=== PATIENT | male | born 1955 | race Two or more races ===

== ENCOUNTER → 2016-11-04 | Outpatient (CLI) | payer OTHER ==
--- NOTE | ~2016-11-04 | US77 ---
[facility] A Service of [facility] RADIOLOGY TEXT RESULTS PATIENT: CHICO UMAÑA LOCATION: [facility] : 53 UNIT #: [id number] AGE: [address]: Lexis Shafer MD SEX: M ORDER DR: [id number] [facility] [address] [facility]. [place], [place] [address] [id number] O MR#: [id number] Acc #: [id number] NAME: CHICO UMAÑA : 1955 SEX: M STUDY DATE/TIME: 11/04/2016 14:21 UNIT: [facility] ROOM: STUDY DESCRIPTION: US Kidney Bilateral Complete Attending Physician: Lexis Shafer M.D. Referring Physician: Lexis Shafer M.D. Ordering Physician: Lexis Shafer M.D. Primary Care Physician: Lexis Shafer M.D. MEDICAL IMAGING REPORT This report is preliminary unless electronic signature is present EXAM Renal ultrasound INDICATIONS Right flank pain for the past month. PROCEDURE Jacob-scale and Doppler imaging of kidneys and bladder. COMPARISON None FINDINGS Right kidney measures 10.8 cm in length. Normal cortical thickness. There is a 1.6-cm cyst in the upper pole of the right kidney. There is a 6-cm cyst exophytic from the left kidney. There is a 4-cm cyst in the left mid kidney. The left kidney measures 11.6 cm in length. No hydronephrosis. Moderate amount of urine in the bladder. Prostate measures 6.2 cm. IMPRESSION 1. Bilateral renal cysts. 2. No hydronephrosis. 3. Moderate amount of urine in the bladder. 4. Prostatomegaly. Dictated by... Uziel Myers M.D. THIS IS AN ELECTRONICALLY VERIFIED REPORT Uziel Myers M.D. at 11/05/2016 2:17 PM LIBIA/bernardo [facility] A Service of [facility] RADIOLOGY TEXT RESULTS PATIENT: CHICO UMAÑA LOCATION: [facility] : 53 UNIT #: [id number] AGE: [address]: Lexis Shafer MD SEX: M ORDER DR: TD: 11/04/2016 17:16 JOB #: [id number] MEDICAL IMAGING REPORT Page 1 of 1 COPY
== END | disposition home or self-care (01) ==
LOC: CGUS 13:25
DX: R10.10 Upper abdominal pain, unspecified (principal); N28.1 Cyst of kidney, acquired; N40.0 Benign prostatic hyperplasia without lower urinary tract symptoms
CPT/HCPCS: 76770

== ENCOUNTER → 2016-11-05 | Outpatient (CLI) | payer OTHER ==
--- NOTE | ~2016-11-05 | US6 ---
[facility] A Service of [facility] RADIOLOGY TEXT RESULTS PATIENT: CHICO UMAÑA LOCATION: [facility] : 53 UNIT #: [id number] AGE: [address]: Lexis Shafer MD SEX: M ORDER DR: [id number] [id number] [facility]. [place], [place] [address] [id number] O MR#: [id number] Acc #: [id number] NAME: CHICO UMAÑA : 1955 SEX: M STUDY DATE/TIME: 11/05/2016 7:41 UNIT: [facility] ROOM: STUDY DESCRIPTION: US Abdominal Limited Attending Physician: Lexis Shafer M.D. Ordering Physician: Lexis Shafer M.D. Primary Care Physician: Lexis Shafer M.D. MEDICAL IMAGING REPORT This report is preliminary unless electronic signature is present EXAM Right upper quadrant ultrasound. INDICATIONS Pain for 1 month. TECHNIQUE Jacob-scale, color Doppler, and spectral Doppler waveform analysis was performed through the abdomen. FINDINGS Visualized portions of the pancreas appear unremarkable. Patient's liver is at the upper limits of normal size, measuring up to 15.6 cm craniocaudal dimensions. It is echogenic, likely reflecting underlying hepatic steatosis. No focal hepatic lesions are seen. Main portal vein is patent. There is no intra- or extrahepatic biliary dilatation. No definite stones are identified within the gallbladder. There is no gallbladder wall thickening or pericholecystic fluid. The patient does have a simple cyst rising from the right kidney, measuring 2.3 x 2.0 x 1.6 cm. No hydronephrosis is seen, and no solid renal masses are identified. Large [employer] also obtained images through the right lower quadrant, where the patient has had a prior hernia repair and now reports pain for about a month. Images through this area do not demonstrate any obvious abnormality. IMPRESSION 1. Mild hepatomegaly and diffuse hepatic steatosis. 2. Right renal cyst. 3. Images through the right lower quadrant in the patient's area of concern do not demonstrate any obvious abnormality. If pain persists, this could be further evaluated with CT with marker placed over the area of interest. [facility]. [facility] A Service of [facility] RADIOLOGY TEXT RESULTS PATIENT: CHICO UMAÑA LOCATION: [facility] : 53 UNIT #: [id number] AGE: [address]: Lexis Shafer MD SEX: M ORDER DR: Dictated by... Dayana Abdullahi M.D. THIS IS AN ELECTRONICALLY VERIFIED REPORT Dayana Abdullahi M.D. at 11/09/2016 8:02 AM ROBERTO/bernardo TD: 11/05/2016 17:02 JOB #: [id number] MEDICAL IMAGING REPORT Page 1 of 1 COPY
== END | disposition home or self-care (01) ==
LOC: CGUS 07:14
DX: R10.10 Upper abdominal pain, unspecified (principal); N28.1 Cyst of kidney, acquired; K76.0 Fatty (change of) liver, not elsewhere classified; R16.0 Hepatomegaly, not elsewhere classified
CPT/HCPCS: 76705

== ENCOUNTER 2017-01-28 03:41 | Emergency (ER) | payer OTHER | END 2017-01-28 04:20 | disposition left against medical advice (07) | LOC: CED 03:41 | DX: Z53.21 Procedure and treatment not carried out due to patient leaving prior to being seen by health care provider (principal) ==